=== PATIENT | female | born 1955 | race Caucasian/White ===

== ENCOUNTER 2017-04-04 19:18 | Emergency (ER) | payer MEDICARE, OTHER ==
[~2017-04-04] VITALS: Ht 162.6 cm; Wt 76.4 kg
--- NOTE | 2017-04-04 19:23 | ED.REPORT ---
HPI-General Illness Date of Service Apr 04, 2017 ED Provider: Dr. Roberts Pt is a 62 y/o female w/ an unknown history presenting to the ED via PD to be declared fit for [facility]. The patient was experiencing shortness of breath and was given a Ventolin inhaler which caused her HR to increase. She was then given Metoprolol which reduced her HR to a normal level. She was sent here to have her dyspnea evaluated. The chief complaint at this time is that she is able to use her C-pap machine which the [facility] is reportedly withholding from her. She is also reporting seeing blood in her vision and falling hitting her left head. She is agitated, uncooperative, and does not want to answer any questions. The patient says that she does not want to be here. She states she has a lot of diseases and takes 28 medications but does not want to discuss them. She has not had her regular diazepam today. Nursing Notes Stated Complaint: FIT FOR [facility] Nursing Notes Reviewed: Yes Allergies: Coded Allergies: Contrast Media (Verified Allergy, Severe, HIVES,WHEEZING, 04/04/17) iodine (Verified Allergy, Severe, HIVES,WHEEZING, 04/04/17) Uncoded Allergies: Contrast Media (Allergy, Severe, HIVES,WHEEZING, 09/11/04) Iodine (Allergy, Severe, HIVES,WHEEZING, 09/11/04) SULFA (Allergy, Severe, 07/24/09) HIVES IODINE (INCLUDES RADIOPAQUE AGENTS W/IODINE) (Ingr Allergy) (Allergy, Unknown, Y, 09/11/04) IODINE/SODIUM IODIDE (Generic Allergy) (Allergy, Unknown, Y, 09/11/04) UNABLE TO BREATHE Sulfa (Allergy, Unknown, 09/11/04) HIVES sulfa=hives iv iodine= unable to breathe decrease bp (Allergy, Unknown, ) General Time Seen by MD: 19:22 Chief Complaint Breathing problem Hx Obtained From: Patient, Police Unable to Obtain Hx: Uncooperative Arrived By: Police Past Medical History Past Medical History Many - does not wish to disclose Past Surgical History Uncooperative Smoking History Unknown if Ever Smoker Ambulatory Status Independent Unable to Obtain History Past medical history, Past surgical history, Family history, Smoking history, Social history Unable to Obtain Due to: Uncooperative Review of Systems Unable to Obtain ROS Uncooperative Full Review of Systems Respiratory: Reports: Shortness of breath Physical Exam Vital Signs Vital Signs Date Time Temp Pulse Resp B/P Pulse Ox O2 Delivery O2 Flow Rate FiO2 04/04/17 21:53 36.8 86 24 155/89 100 Room Air 04/04/17 19:43 88 22 110/83 99 Room Air 04/04/17 19:26 37.8 92 20 127/83 99 Room Air Initial VS: Reviewed, Vital signs normal ENT: Mucous membranes moist, Conjunctiva normal, No scleral icterus Neck: Supple, Full range of motion Respiratory: Breath sounds normal, Clear to auscultation, No respiratory distress Cardiovascular: Regular rate & rhythm, Heart sounds normal, Intact distal pulses Abdomen / GI: Soft, No distention Extremities: Vascular intact, Neuro intact Neurologic: Alert, Oriented, Nonfocal General/Constitutional: Awake, Alert, No acute distress, Not toxic appearing Agitated Uncooperative Head / Eyes: Atraumatic, Normocephalic, PERRL, EOMI, Fundi NL Bilateral fundus exam normal No contusion palpable Skin: Atraumatic, Warm, Dry, Intact Flushed Psychiatric: No hallucinations Abnormal Mood/Affect: Positive: Irritable Agitated Uncooperative Interpretation & Diagnostics X-Ray Interpretation Xray Interpretation: IMPRESSION: No acute fracture dislocation. Mild degenerative change and mild calcific tendinitis. Dictated by: Charmaine Lyons M.D. on 04/04/2017 at 21:10 Approved by: Charmaine Lyons M.D. 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 She took a metoprolol prior to arrival which is one of her home medications and her heart rate is now 85. She took 3 puffs of Ventolin and her shortness of breath has resolved. She has an elevated temperature at 37.9 so I offered a chest x-ray but she refused stating she does not need extra radiation. Her lungs sound clear on exam and her oxygen is normal. She states she just finished a course of antibiotics for the past 10 days. She is very agitated and was given one of her home medications, diazepam 5 mg. Pt also complaining of L shoulder pain from the way from being handcuffed and brought in for evaluation. L shoulder xray is negative. Pt now being discharged home rather than back to [facility]. Time of Eval: 19:35 Re-Evaluation/Progress Note: Pt rechecked. She continues to decline any treatment including chest x-ray. Counseled Regarding: Diagnosis, Need for follow-up, When/why to return to ED Discharge & Departure Primary Impression: Dyspnea Dyspnea type: unspecified Qualified Code: R06.00 - Dyspnea, unspecified Additional Impressions: Left shoulder pain Chronicity: acute Qualified Code: M25.512 - Pain in left shoulder Acute situational disturbance Disposition: Home Discharge Condition All VS Reviewed: Yes Condition: Stable Additional Instructions: Your evaluation today in the emergency department did not reveal any dangerous findings. Your fast heart rate and shortness of breath resolved after taking metoprolol and your Ventolin inhaler With your elevated temperature and your shortness of breath I wanted to do a chest x-ray but you refused Your shoulder x-ray does not reveal any injury I am glad that you are feeling better at this time. Please follow-up with your primary care provider within the next week or two. Referrals: Sheyla Camacho MD (PCP) Scribe Attestation Portions of this note were transcribed by Emery Celaya. I, Dr. Roberts personally performed the history, physical exam and medical decision-making; I reviewed and confirmed the accuracy of the information in the transcribed note. Signed by Sandra Gonzalez, 04/04/[id number] copies to: Sheyla Camacho MD, Gary R DO Apr 04, 2017 19:23 EMERY CELAYA Apr 04, 2017 19:27
[2017-04-04 19:26] VITALS: BP 127/83; PULSE 92; RESP 20; O2SAT 99
[2017-04-04 19:43] VITALS: BP 110/83; PULSE 88; RESP 22; O2SAT 99
--- NOTE | 2017-04-04 21:11 | DRSVH ---
PROCEDURE: X-RAY CHEST, TWO VIEWS ([id number]) INDICATIONS: sob, fever TECHNIQUE: 2 views of the chest were acquired. COMPARISON: None. FINDINGS: Surgical changes and devices: None. Lungs and pleura: No pleural effusions or pneumothorax. Lungs are clear. Mediastinum: Mediastinal contours are normal. Heart size is normal. Bones and chest wall: No suspicious bony abnormalities. Soft tissues appear unremarkable. IMPRESSION: No acute cardiopulmonary findings. Dictated by: Charmaine Lyons M.D. on 04/04/2017 at 21:10 Approved by: Charmaine Lyons M.D. on 04/04/2017 at 21:10
--- NOTE | 2017-04-04 21:12 | DRSVH ---
PROCEDURE: X-RAY LEFT SHOULDER, MINIMUM TWO VIEWS ([id number]) INDICATIONS: shoulder pain TECHNIQUE: 3 views of the shoulder were acquired. COMPARISON: None. FINDINGS: Bones: No fractures or dislocations. No suspicious bony lesions. Mild degenerative changes present at the acromioclavicular and glenohumeral joints. There is likely mild calcific tendinitis. Visualiz ed ribs appear intact. Soft tissues: No suspicious soft tissue calcifications. IMPRESSION: No acute fracture dislocation. Mild degenerative change and mild calcific tendinitis. Dictated by: Charmaine Lyons M.D. on 04/04/2017 at 21:10 Approved by: Charmaine Lyons M.D. on 04/04/2017 at 21:11
[2017-04-04 21:53] VITALS: BP 155/89; PULSE 86; RESP 24; O2SAT 100
== END 2017-04-04 21:55 | disposition home or self-care (01) ==
LOC: SED 19:18
DX: R06.00 Dyspnea, unspecified (principal); F43.0 Acute stress reaction; M25.512 Pain in left shoulder; H53.8 Other visual disturbances; R45.1 Restlessness and agitation; Z91.041 Radiographic dye allergy status; Z88.8 Allergy status to other drugs, medicaments and biological substances